=== PATIENT | female | born 1950 | race Two or more races ===

== ENCOUNTER 2022-11-17 16:55 | Emergency (ER) | payer OTHER ==
[~2022-11-17] VITALS: Ht 165.1 cm; Wt 56.2 kg
[2022-11-17] MEDS ORDERED: LEVOTHYROXINE100 MCG PO (17:13)
[2022-11-17] MEDS ORDERED: AMLODIPINE BESYL5 MG PO (17:13)
== END 2022-11-17 22:23 | disposition designated cancer center or children's hospital (05) ==
LOC: ER 16:55
DX: N17.9 Acute kidney failure, unspecified (principal); D64.9 Anemia, unspecified; Z79.84 Long term (current) use of oral hypoglycemic drugs; Z20.822 Contact with and (suspected) exposure to COVID-19; I12.9 Hypertensive chronic kidney disease with stage 1 through stage 4 chronic kidney disease, or unspecified chronic kidney disease; E11.22 Type 2 diabetes mellitus with diabetic chronic kidney disease; N18.9 Chronic kidney disease, unspecified